=== PATIENT | female | born 1990 | race Caucasian/White ===

== ENCOUNTER 2019-03-22 04:00 | Inpatient (IN) ==
[2019-03-22] MEDS ORDERED: *HR* Nalbuphine 10 MG/ML AMPUL IVP PRN (04:17)
[2019-03-22] MEDS ORDERED: Lidocaine 1% 20 ML MDV ID PRN (04:17)
[2019-03-22] MEDS ORDERED: Famotidine 20 MG/2 ML VIAL IVP PRN (04:17)
[2019-03-22] MEDS ORDERED: Metoclopramide 10 MG/2 ML VIAL IVP PRN (04:17)
[2019-03-22] MEDS ORDERED: Naloxone 0.4 MG/ML INJ IVP PRN (04:17)
[2019-03-22] MEDS ORDERED: Ringers Solution, Lactated 1,000 ML IVC SCH (04:30)
[2019-03-22 04:40] LABS: Basophils % 0.2 %; Eosinophils # 0.1 K/mcL (0.0-0.6); Eosinophils % 0.9 %; Hematocrit 35.3 % (35.3-44.9); Hemoglobin 11.9 g/dL (11.5-15.4); Immature Granulocytes % 1.4 % (0-4); Lymphocytes # 2.7 K/mcL (0.6-4.6); Lymphocytes % 19.5 %; Mean Corpuscular HGB Conc 33.7 g/dL (31.6-35.5); Mean Corpuscular Hemoglobin 28.7 pg (28.0-33.3); Mean Corpuscular Volume 85.3 fL (83.0-100.0); Mean Platelet Volume 11.2 fL (9.4-12.4); Monocytes % 6.9 %; Neutrophils # 9.9 K/mcL (1.6-8.9); Nucleated Red Blood Cells 0.1 /100 WBC (0); Platelet Count 259 K/mcL (140-400); Red Blood Count 4.14 M/mcL (3.82-4.97); Red Cell Distribution Width 13.2 % (11.5-14.5); Segmented Neutrophils % 71.1 %
[2019-03-22 04:47] LABS: Protein/Creatinine Ratio,Urine 0.47 mg/mg (0.00-0.20)
[2019-03-22 04:47] LABS: Amphetamine Screen,Urine Negative ng/mL (Cutoff=1000); Barbiturate Screen,Urine Negative ng/mL (Cutoff=200); Benzodiazepines Screen,Urine Negative ng/mL (Cutoff=200); Cannabinoid Screen,Urine Negative ng/mL (Cutoff = 50); Cocaine Screen,Urine Negative ng/mL (Cutoff= 300); Opiate Screen,Urine Negative ng/mL (Cutoff=300); Phencyclidine Screen,Urine Negative ng/mL (Cutoff=25)
[2019-03-22] MEDS: miSOPROStol 25 MCG TABLET PO PRN ×2 (04:50→09:11)
[2019-03-22 05:02] LABS: Alanine Aminotransferase 10 Units/L (7-52); Aspartate Amino Transferase 15 Units/L (13-39); BUN/Creatinine Ratio 20 (6-26); Blood Urea Nitrogen 14 mg/dL (6-20); Lactate Dehydrogenase 175 Units/L (140-271); Uric Acid 5.9 mg/dL (2.3-7.6); eGFR For African Americans > 60 (> 60); eGFR For Non-African Americans > 60 (> 60)
[2019-03-22] MEDS ORDERED: Ondansetron 4 MG/2 ML VIAL ONE (06:31)
[2019-03-22] MEDS ORDERED: Epidural Premix (fent/bupiv) 110 ML EP SCH (07:30)
[2019-03-22] MEDS: Oxytocin 20 units/ LR 1000 mL 20 UNIT/1,000 ML BAG IVC SCH ×2 (13:19→19:32)
[2019-03-22] MEDS ORDERED: Ondansetron 4 MG/2 ML VIAL IVP STA (17:39)
[2019-03-22] MEDS ORDERED: Oxytocin 20 units/ LR 1000 mL 20 UNIT/1,000 ML BAG IVC SCH (19:45)
[2019-03-22] MEDS ORDERED: *HR* HYDROcodone/Acet 5/325 mg TABLET PO PRN (19:45)
[2019-03-22] MEDS ORDERED: Acetaminophen 325 MG TABLET PO PRN (19:45)
[2019-03-22] MEDS ORDERED: Lanolin 7 G OINT...G. TP PRN (19:45)
[2019-03-22] MEDS ORDERED: Benzocaine/Menthol 56 GM AEROSOL SPRAY TP PRN (19:45)
[2019-03-22] MEDS: Ibuprofen 600 MG TABLET PO PRN (20:08)
[2019-03-23] MEDS: Ibuprofen 600 MG TABLET PO PRN ×2 (03:50→12:05)
[2019-03-23] MEDS ORDERED: Prenatal Vit/FA 1 EACH TABLET PO SCH (09:00)
[2019-03-23 15:44] VITALS: BP 120/84
== END 2019-03-23 17:30 | disposition home or self-care (01) | DRG 807 ==
LOC: 1NENULAB 04:11 → 1NENUOBS 21:05
PROVIDERS: ADMIT Obstetrics & Gynecology; ATTEND Obstetrics & Gynecology